=== PATIENT | female | born 1995 | race Caucasian/White ===

== ENCOUNTER 2016-10-13 20:10 | Outpatient (CLI) | payer OTHER ==
[~2016-10-13 20:10] MED LIST: CELE10TA PO; RISP1TAB41 PO
--- NOTE | 2016-10-13 22:20 | REPUSA ---
OBSTETRICAL ULTRASOUND INDICATION: OB screening for movement. FINDINGS: A single live intrauterine gestation was identified with a heart rate of 132 bpm. The amniotic fluid index was normal measuring 17.7 cm. The placenta was anterior, without evidence of pl acenta previa. The fetus was in a cephalic lie. The cervix measures 4.1 cm in length and is closed. L imited visualized anatomy is within normal limits. Normal movement, breathing motio n, and tone was appreciated. Umbilical systolic/diastolic ratio measures 2.35, with the resisti ve index of 0.57. IMPRESSION: 1. Single live fetus based on today's measurements at 29 weeks 4 days, with an estimated due date of 12/25/2016. 2. Biophysical profile measures 04/27.
== END 2016-10-13 22:28 | disposition home or self-care (01) ==
LOC: M LDO 20:10
PROVIDERS: ATTEND Advanced Practice Midwife
DX: O36.8130 Decreased fetal movements, third trimester, not applicable or unspecified (principal); Z3A.30 30 weeks gestation of pregnancy

== ENCOUNTER 2016-11-17 18:38 | Outpatient (CLI) | payer OTHER ==
[~2016-11-17] VITALS: Ht 157.5 cm; Wt 105.0 kg
[2016-11-17 18:58] VITALS: BP 127/90
[2016-11-17] MEDS ORDERED: ACET50TA PO (19:09)
[2016-11-17] MEDS ORDERED: RANI15TA PO (19:09)
[2016-11-17] MEDS ORDERED: PRENTAB9 PO (19:09)
== END 2016-11-17 20:55 | disposition home or self-care (01) ==
LOC: M LDO 18:38
PROVIDERS: ATTEND Obstetrics & Gynecology
DX: O47.03 False labor before 37 completed weeks of gestation, third trimester (principal); Z3A.35 35 weeks gestation of pregnancy

== ENCOUNTER → 2016-11-20 | Outpatient (REF) | payer OTHER ==
[~2016-11-20] MED LIST changes: +ACET50TA PO; +PRENTAB9 PO; +RANI15TA PO
== END ==
LOC: M LAB REF 12:56
PROVIDERS: ATTEND Advanced Practice Midwife
DX: Z34.83 Encounter for supervision of other normal pregnancy, third trimester (principal); Z36 Encounter for antenatal screening of mother; Z3A.00 Weeks of gestation of pregnancy not specified

== ENCOUNTER → 2016-12-15 | Outpatient (REF) | payer OTHER | LOC: M SFHCLERA 11:33 | PROVIDERS: ATTEND Physician Assistant | DX: J02.9 Acute pharyngitis, unspecified (principal) ==

== ENCOUNTER 2016-12-26 15:03 | Inpatient (IN) | payer OTHER ==
[~2016-12-26] VITALS: Ht 157.5 cm; Wt 110.0 kg
[2016-12-26] MEDS: miSOPROStol 50 MCG 1/2 TAB (S0191) PO SCH ×2 (00:30→16:14)
--- NOTE | 2016-12-26 15:53 | HPE ---
DATE OF ADMISSION: 12/26/2016 REASON FOR ADMISSION: Induction of labor. HISTORY OF PRESENT ILLNESS: Mrs. Wing is a 21-year-old 2, para 0, who presents at 41 weeks zero days estimated gestational age by last menstrual period, confirmed by first-trimester ultrasound, here for induction of labor. Her course has been unremarkable. She initiated care in the first trimester, has been appropriate throughout. PAST MEDICAL HISTORY: None. PAST SURGICAL HISTORY: None. PAST OBSTETRICAL HISTORY: She is 2, para 0. She has had one elective termination. MEDICATIONS: Include vitamins. ALLERGIES: BENADRYL. SOCIAL HISTORY: Denies any alcohol, tobacco or drug use in the . PHYSICAL EXAMINATION: VITAL SIGNS: Stable. She is afebrile. She has category one heart rate tracing. GENERAL APPEARANCE: Is well appearing, in no acute distress. LUNGS: Clear to auscultation bilaterally. CARDIOVASCULAR: Heart regular rate and rhythm. ABDOMEN: Gravid. Estimated weight (EFW) is 4000 grams. CERVICAL EXAM: She is 1 cm dilated, 75% effaced, -3 station. LABORATORIES: Blood type is A positive, antibody screen negative. Rubella equivocal. RPR nonreactive. Hepatitis surface antigen is negative. HIV is negative. Hepatitis C is nonreactive. Chlamydia and gonorrhea screens are negative. She had a normal one-hour Glucola. She is GBS negative. ASSESSMENT: 1. This patient is a 21-year-old 2, para 0, at 41 weeks zero days estimated gestational age, here for induction of labor. 2. Reassuring status. PLAN: 1. Admit to labor and delivery. Complete blood count (CBC), rapid plasma reagin (RPR), type and screen. 2. The patient has been thoroughly counseled in regards to induction of labor. I discussed medications as well as procedures performed in labor and delivery. She has also been verbally consented for emergency surgery, blood products, anesthesia, and desires to proceed with admission. 3. We will initiate her induction with 50 mcg of oral misoprostol.
[2016-12-27] VITALS (33 sets, daily range): BP systolic 80–134; BP diastolic 40–76
[2016-12-27] MEDS: miSOPROStol 50 MCG 1/2 TAB (S0191) PO SCH ×2 (00:28→07:15)
[2016-12-27] MEDS ORDERED: LR 1,000 ML IV SCH (08:50)
[2016-12-27] MEDS ORDERED: OXYTOCIN DRIP 30 UNITS in APPROPRIATE DILUENT 1 EA IV SCH ×2 (09:00→20:09)
[2016-12-27] MEDS ORDERED: ONDANSETRON 4MG/2ML VIAL (J2405) IV PRN ×2 (10:00→18:15)
[2016-12-27] MEDS ORDERED: BUTORPHANOL 2 MG/ML INJ (J0595) IV PRN (12:15)
[2016-12-27] MEDS ORDERED: PROMETHAZINE INJ 25 MG/ML VIAL (J2550) IV PRN (12:15)
[2016-12-27] MEDS ORDERED: FENTANYL 2MCG/ML ROPIVACAINE 0.2% IN 0.9% NACL 200ML IVBAG As Ordered ONE (16:39)
[2016-12-27] MEDS ORDERED: ePHEDrine SULFATE 25 MG/5 ML(5MG/ML) SYRINGE As Ordered ONE (17:29)
[2016-12-27] MEDS ORDERED: FENTANYL/ROPIVACAINE/NACL BAG 200 ML EPIDURAL SCH (18:15)
[2016-12-27] MEDS ORDERED: ePHEDrine SULFATE 25 MG/5 ML(5MG/ML) SYRINGE IV PRN (18:15)
[2016-12-27] MEDS ORDERED: EPIDURAL/PCA KEYS XX PRN (18:15)
[2016-12-27] MEDS ORDERED: EPIDURAL COMMENT XX SCH (18:15)
[2016-12-27] MEDS ORDERED: REFRIGERATOR IV KEYS XX PRN (18:15)
[2016-12-27] MEDS ORDERED: NALOXONE INJ 0.4 MG/1 ML VIAL (J2310) IV PRN (18:15)
[2016-12-27] MEDS ORDERED: RHOGAM 300 MCG (1500 IU) INJ (J2790) IM SCH (20:15)
[2016-12-27] MEDS ORDERED: IBUPROFEN 800 MG TAB PO PRN (20:15)
[2016-12-27] MEDS ORDERED: DIBUCAINE 1% OINTMENT 30GM TOP PRN (20:15)
[2016-12-27] MEDS ORDERED: ACETAMINOPHEN 500 MG TAB PO PRN (20:15)
[2016-12-27] MEDS ORDERED: METHYLERGONOVINE MALEATE 0.2 MG TAB PO PRN (20:15)
[2016-12-27] MEDS ORDERED: ANUSOL HC CREAM 30GM TOP PRN (20:15)
[2016-12-27] MEDS ORDERED: MEASLES,MUMPS,RUBELLA VACCINE INJ (MMR-II) (90707) SC SCH (20:15)
[2016-12-27] MEDS ORDERED: DOCUSATE SODIUM 100 MG CAP PO PRN (20:15)
[2016-12-27] MEDS ORDERED: MOM 30ML SUSPENSION UDC PO PRN (20:15)
--- NOTE | 2016-12-27 20:54 | DN ---
DATE OF DELIVERY: 12/27/2016 TIME OF : 1935. Gender female. scores 8 and 9. Weight was 7 pounds 3 ounces, 3264 grams. LACERATIONS: None. ESTIMATED BLOOD LOSS: 200 mL. ANESTHESIA: Epidural. COUNTS: Five laparotomy sponges counted for prior to and after delivery. SHARPS: Two sharps removed from the delivery field. DELIVERY NOTE: On 12/27/2016, at 1937, this patient, a 21-year-old 2, now para 1, had a spontaneous vaginal delivery of a liveborn female , scores of 8 and 9. Weight was 3264 grams, 7 pounds 3 ounces. Head was delivered occiput anterior (OA) over intact perineum. There was a nuchal cord which infant was delivered through. The was handed to mom with a good cry. Cord was clamped times two, was cut by the father of the baby under my direction. Cord blood was then obtained. Cord gas was obtained. Placenta was then drained and delivered grossly intact. A premixed bag of 500 mL of normal saline with 30 units of Pitocin was bolused along with uterine massage till the uterus was firm. On inspection, the cervix, vagina and perineum were grossly intact, hemostatic. Mom and baby to recovery in stable condition. The couple has decided to name their daughter Lyn.
[2016-12-28 05:37] VITALS: BP 132/74
[2016-12-28] MEDS: PRENATAL VITAMIN TAB PO SCH (08:46)
[2016-12-28 18:19] VITALS: BP 132/72
[2016-12-29 06:05] VITALS: BP 99/57
[2016-12-29] MEDS ORDERED: ACET50TA PO (08:36)
[2016-12-29] MEDS ORDERED: IBUP-1114 PO (08:36)
[2016-12-29] MEDS: PRENATAL VITAMIN TAB PO SCH (09:38)
== END 2016-12-29 10:35 | disposition home or self-care (01) | DRG 775 ==
LOC: M LDI 15:03 → M OBS 12-27 21:18
PROVIDERS: ADMIT Obstetrics & Gynecology; ATTEND Obstetrics & Gynecology
PROC: 3E0P7GC Introduction of Other Therapeutic Substance into Female Reproductive, Via Natural or Artificial Opening (ICD-10-PCS; 2016-12-26)
PROC: 10E0XZZ Delivery of Products of Conception, External Approach (ICD-10-PCS; principal; 2016-12-27)
DX: O48.0 Post-term pregnancy (principal); Z3A.41 41 weeks gestation of pregnancy; Z37.0 Single live birth

== ENCOUNTER → 2017-05-04 | Outpatient (REF) | payer OTHER ==
[~2017-05-04] MED LIST changes: +IBUP-1114 PO; -RISP1TAB41 PO; +RISP1TAB42 PO
[2017-05-04 17:16] LABS: FREE T4 0.59 NG/DL (0.78-1.33)
== END ==
LOC: M SFHCLERA 14:48
PROVIDERS: ATTEND Physician Assistant
DX: R63.5 Abnormal weight gain (principal)